=== PATIENT | female | born 1970 | race African-American/Black ===

== ENCOUNTER 2019-07-21 13:50 | Emergency (ER) | payer MEDICAID ==
[~2019-07-21] VITALS: Ht 152.4 cm; Wt 55.0 kg
[~2019-07-21 13:50] MED LIST: CEPH500C2 PO; SULF1TAB47 PO
[2019-07-21] MEDS ORDERED: DIPHENHYDRAMINE 50MG CAPSULE PO ONE (17:45)
[2019-07-21] MEDS ORDERED: FAMOTIDINE 20MG TABLET PO SCH (17:45)
[2019-07-21] MEDS ORDERED: PREDNISONE 20MG TABLET PO ONE (17:45)
[2019-07-21 18:14] VITALS: BP 137/90
== END 2019-07-21 18:15 | disposition home or self-care (01) ==
LOC: ER 13:50
DX: L50.9 Urticaria, unspecified (principal)
CPT/HCPCS: 99284; J7512; Q0163